=== PATIENT | male | born 1990 | race Caucasian/White ===

== ENCOUNTER 2016-04-22 19:10 | Emergency (ER) | payer OTHER ==
[~2016-04-22] VITALS: Ht 180.3 cm; Wt 131.8 kg
[~2016-04-22 19:10] MED LIST: ALBU8.5H2 INHALATION; BENZ200C44 PO; CLIN-78 PO; IBUP-1827 PO; ONDA8TAB10 PO; ONDA8TAB7 PO; PRE20 PO; TRAM50TA2 PO
[2016-04-22 19:13] VITALS: BP 153/92; PULSE 112; RESP 18; O2SAT 98
--- NOTE | 2016-04-22 21:16 | ED.REPORT ---
HPI-URI / Cough / Cold Date of Service Apr 22, 2016 ED Provider: Johny Francois MD Patient is a 25 year old male who presents to the ED with flu-like symptoms for the past 1.5 weeks. Patient reports associated cough, difficulty breathing, sore throat, nasal congestion, and left ear pain. Patient states that today he popped his left ear and experienced pain. He denies discharge from his ear. Patient denies fever, chills, nausea, vomiting, or diarrhea. Patient is an everyday smoker and works outside in construction. The patient did not receive his seasonal influenza immunization this year. Nursing Notes Stated Complaint: SINUS CONGESTION, PAIN WHEN BREATHING,COUGH Chief Complaint: FLU/Cold Symptoms Nursing Notes Reviewed: Yes Allergies: Coded Allergies: Penicillins (Verified Allergy, Intermediate, Hives, 05/04/15) hydrocodone (Verified Allergy, Intermediate, Hives, 05/04/15) Scheduled Clindamycin (Clindamycin) 300 Mg Capsule 600 MG PO TID Prednisone (PredniSONE) 20 Mg Tablet 60 MG PO DAILY Scheduled PRN Albuterol HFA (Proair HFA) 8.5 Gm Hfa.aer.ad 2 PUFFS INHALATION Q4H PRN PRN For Wheezing Benzonatate (Benzonatate) 200 Mg Capsule 200 MG PO TID PRN PRN For Cough Ibuprofen (Ibuprofen) 600 Mg Tablet 600 MG PO QID PRN PRN For Pain Ondansetron ODT (Ondansetron ODT) 8 Mg Tab.rapdis 8 MG PO TID PRN PRN For Nausea Ondansetron ODT (Zofran ODT) 8 Mg Tablet 8 MG PO Q4H PRN PRN For Nausea Tramadol (Tramadol) 50 Mg Tablet 50 MG PO Q4H PRN PRN For Pain General Time Seen by MD: 21:12 Chief Complaint Cough, non-productive, Earache right, Runny nose, Sore throat, Upper resp infection Hx Obtained From: Patient Arrived By: Walk-in Onset Occurred: More than a week ago... (1.5 weeks) Symptom Duration: Since onset Location: : Ear left Quality: Painful Severity: Current: Moderate Severity: Maximum: Moderate Context: Immunization Status Immunizations Not Up to Date: Seasonal influenza Recent Healthcare: No recent doctor visit, No recent hospitalization Similar Sx Previous: No Past Medical History Past Medical History Denies Past Surgical History shoulder surgery Reports: Tonsillectomy Family History Reviewed but not relevant Smoking History Current Every Day Smoker Social History Alcohol Use: Denies alcohol use Drug Use: Denies drug use Other Social History: Good social support, Local resident Ambulatory Status Independent Review of Systems Constitutional: Denies: Chills, Fever Ears / Nose / Throat: Reports: Earache left, Nasal congestion, Sore throat, Denies: Ear drainage left, Ear drainage right, Earache right Respiratory: Reports: Non-productive cough, Shortness of breath GI: Denies: Diarrhea, Nausea, Vomiting Complete sys rev & neg: except as marked. Physical Exam Initial Vital Signs Vital Signs (First) Date Time Temp Pulse Resp B/P Pulse Ox O2 Delivery O2 Flow Rate FiO2 04/22/16 19:13 36.4 112 18 153/92 98 Room Air Initial VS: Reviewed, Vital signs abnormal Head / Eyes: Atraumatic, Normocephalic, PERRL Neck: Supple, Full range of motion Cardiovascular: Regular rate & rhythm, Heart sounds normal Extremities: Vascular intact, Neuro intact Skin: Warm, Dry, No cyanosis Neurologic: Alert, Oriented, Nonfocal Psychiatric: Mood/affect normal, Behavior normal, Normal thought content General/Constitutional: Awake, Alert, No acute distress, Well hydrated Appearance / Presentation: Positive: Obese ENT: Airway patent, Mucous membranes moist, Pharynx NL Right Ear / Mastoid: Positive: Tympanic memb retracted Left Ear / Mastoid: Positive: Tympanic membrane bulging, Tympanic membrane red Respiratory / Chest: Breath sounds NL, Breath sounds = bilat, No respiratory distress, No rales, No rhonchi, No wheezing frequent cough Interpretation & Diagnostics Lab Results Interpretation Test 04/22/16 19:50 Hold Urine Received (Received) X-Ray Chest Interpretation Chest Xray Interpretation: IMPRESSION: The current 2 view chest x-ray shows no acute or active disease. Dictated by: Fabrizio Vasques M.D. on 04/22/2016 at 21:44 Approved by: Fabrizio Vasques M.D. on 04/22/2016 at 21:44 View: AP & lat Interpretation / Wet Read by: Interpret - Radiologist Re-Eval/Medical Decision Med Decision/Clinical Course 25-year-old male with upper respiratory symptoms for greater than a week's duration. He felt a pop in his left ear. He has a acute left otitis media with bulging TM. Chest x-ray shows no evidence of pneumonia. He does have some reactive airways, symptoms improved with nebulizer treatment. He was given amoxicillin and Afrin and albuterol. Source of Hx: Old records Re-Evaluation/Progress #1: Time of Eval: 22:12 Patient Status: Condition improved Re-Evaluation/Progress Note: Lidocaine was placed in the patient's ear. He is now wheezing and will be given a breathing treatment. Re-Evaluation/Progress #2: Time of Eval: 23:38 Patient Status: Condition improved Re-Evaluation/Progress Note: Patient is improved after breathing treatment. Patient understands and agrees with the plan to be discharged home. Discharge instructions and follow-up discussed. All questions were addressed. Return to the ED warnings given. Counseled Regarding: Diagnosis, Need for follow-up, When/why to return to ED Discharge & Departure Impression: Primary Impression: Otitis media Otitis media type: suppurative Laterality: left Chronicity: acute Recurrence: not specified Spontaneous tympanic membrane rupture: without spontaneous rupture Qualified Code: H66.002 - Acute suppurative otitis media without spontaneous rupture of ear drum, left ear Additional Impressions: Upper respiratory infection URI type: unspecified viral URI Qualified Code: J06.9 - Acute upper respiratory infection, unspecified Reactive airway disease Asthma severity: mild intermittent Asthma complication type: with acute exacerbation Qualified Code: J45.21 - Mild intermittent asthma with (acute) exacerbation Disposition: Home Discharge Condition All VS Reviewed: Yes Condition: Stable Patient Instructions: Otitis Media (ED), Upper Respiratory Infection (ED) Additional Instructions: Left ear infection, no evidence of pneumonia. Azithromycin as below. Afrin ( oxymetazoline) nasal spray 2 sprays 3-4 times daily for 3-4 days, #1 dispensed. Albuterol inhaler with spacer 2 puffs every 4-6 hours as needed for wheezing, #1 dispensed. Follow-up with your regular doctor as needed for persistent symptoms. Return to the emergency room if she worsens significantly. Referrals: [facility] Scribe Attestation Portions of this note were transcribed by Yesenia Menendez. I, Dr. Francois personally performed the history, physical exam and medical decision-making; I reviewed and confirmed the accuracy of the information in the transcribed note. Signed by: Yesenia Menendez [facility], 04/23/2016 0008 Johny Francois MD Apr 22, 2016 21:16 Yesenia Menendez Apr 22, 2016 21:25 Yesenia Menendez Apr 22, 2016 21:25
--- NOTE | 2016-04-22 21:46 | DRSVH ---
PROCEDURE: X-RAY CHEST, TWO VIEWS ([id number]) INDICATIONS: cough, congestion, feverish TECHNIQUE: 2 views of the chest were acquired. COMPARISON: [facility], [facility], XR CHEST 2VW, 03/23/2015, 0:53. FINDINGS: Surgical changes and devices: None. Lungs and pleura: No pleural effusions or pneumothorax. Lungs are clear. Mediastinum: Mediastinal contours are normal. Heart size is normal. Bones and chest wall: No suspicious bony abnormalities. Soft tissues appear unremarkable. IMPRESSION: The current 2 view chest x-ray shows no acute or active disease. Dictated by: Fabrizio Vasques M.D. on 04/22/2016 at 21:44 Approved by: Fabrizio Vasques M.D. on 04/22/2016 at 21:44
[2016-04-22] MEDS ORDERED: Albuterol-Ipratropium 3 mL Inhalation Solution NEB ONE (22:15)
[2016-04-22] MEDS ORDERED: _Azithromycin 250 mg Tablet PO SCH (22:30)
[2016-04-22 22:50] VITALS: PULSE 72; RESP 16; O2SAT 95
[2016-04-22] MEDS ORDERED: _Albuterol-HFA 60 Puff Inhaler INHALATION PRN (23:25)
[2016-04-23 00:30] VITALS: BP 134/74; PULSE 105; RESP 18; O2SAT 97
== END 2016-04-23 00:31 | disposition home or self-care (01) ==
LOC: SED 19:10
DX: H66.002 Acute suppurative otitis media without spontaneous rupture of ear drum, left ear (principal); J06.9 Acute upper respiratory infection, unspecified; J45.21 Mild intermittent asthma with (acute) exacerbation; F17.200 Nicotine dependence, unspecified, uncomplicated; Z88.0 Allergy status to penicillin; Z88.5 Allergy status to narcotic agent
CPT/HCPCS: 71020; 87804; 94640; 99284; J7620